=== PATIENT | female | born 1955 | race Two or more races ===

== ENCOUNTER 2020-03-30 19:29 | Emergency (ER) | payer MEDICARE, BC ==
[~2020-03-30] VITALS: Ht 154.9 cm; Wt 61.8 kg
[~2020-03-30 19:29] MED LIST: AMIT-189 PO; ASPI-1265 PO; ATOR20TA PO; FOLI0.4T2 PO; HYDR12.55 PO; LISI-600 PO; METH2.5T PO; OMEP40CA13 PO; PRED1TAB PO; SOTA80TA73 PO
[2020-03-30 20:11] LABS: BASOPHILS # (AUTO) 0.1 X10'3 (0-0.2); BASOPHILS % (AUTO) 1.3 % (0-1); EOSINOPHILS # (AUTO) 0.3 X10'3 (0-0.9); HEMATOCRIT 34.9 % (35.0-45.0); HEMOGLOBIN 11.8 g/dl (12.0-16.0); LYMPHOCYTES # (AUTO) 1.5 X10'3 (1.1-4.8); LYMPHOCYTES % (AUTO) 29.8 % (21-51); MEAN CORPUSCULAR HEMOGLOBIN 30.2 PG (27.0-31.0); MEAN CORPUSCULAR HGB CONC 33.8 g/dL (33.0-36.5); MEAN CORPUSCULAR VOLUME 89.5 FL (78-98); MEAN PLATELET VOLUME 6.9 FL (7.4-10.4); MONOCYTES # (AUTO) 0.8 X10'3 (0-0.9); MONOCYTES % (AUTO) 15.7 % (2-12); NEUTROPHILS # (AUTO) 2.4 X10'3 (1.8-7.7); NEUTROPHILS % (AUTO) 47.2 % (42-75); PLATELET COUNT 297 X10'3 (140-440); WHITE BLOOD COUNT 5.2 X10'3 (4.5-11.0)
[2020-03-30 20:18] LABS: ALANINE AMINOTRANSFERASE 27 U/L (12-78); ALBUMIN 3.2 G/DL (3.4-5.0); ALBUMIN/GLOBULIN RATIO 0.8 (1.1-1.5); ALKALINE PHOSPHATASE 90 IU/L (46-116); ANION GAP 6 (8-16); ASPARTATE AMINO TRANSFERASE 21 U/L (10-37); BILIRUBIN,TOTAL 0.2 MG/DL (0.1-1.0); BLOOD UREA NITROGEN 12 MG/DL (7-18); BUN/CREATININE RATIO 13.8 (6.6-38.0); CALCIUM 8.5 MG/DL (8.5-10.1); CHLORIDE 106 MMOL/L (99-107); CREATININE 0.87 MG/DL (0.40-0.90); GLUCOSE 140 MG/DL (70-104); LIPASE 279 U/L (73-393); POTASSIUM 3.4 MMOL/L (3.5-5.1); SODIUM 140 MMOL/L (135-145); TOTAL CARBON DIOXIDE 27.6 MMOL/L (24-32); eGFR 65 ML/MIN
[2020-03-30 20:25] LABS: CLARITY,URINE CLEAR (Clear); COLOR,URINE YELLOW (Yellow); GLUCOSE, URINE NEGATIVE (Neg); KETONES,URINE NEGATIVE (Neg); NITRITES, URINE NEGATIVE (Neg); OCCULT BLOOD,URINE NEGATIVE (Neg); PROTEIN,URINE NEGATIVE (Neg); UROBILINOGEN,URINE 0.2 E.U/dL (0.2-1.0)
[2020-03-30 20:26] LABS: UA COLLECTION TYPE CLN CATCH MIDSTREAM
[2020-03-30 20:36] LABS: BACTERIA,URINE FEW /HPF (Neg); RBC,URINE NONE SEEN /HPF (0-2); SQUAMOUS EPITHELIAL CELL,UR FEW /LPF (FEW); WBC,URINE 0-4 /HPF (0-4)
--- NOTE | 2020-03-30 21:19 | NUR ---
RESTING IN BED, NO APPARENT DISTRESS. RESPIRATIONS EVEN
[2020-03-30] MEDS ORDERED: ketorolac tromethamine 15mg/ml inj. IV ONE (22:25)
[2020-03-30] MEDS ORDERED: normal saline 1000ML IV soln IVB ONE (22:25)
[2020-03-30] MEDS ORDERED: pantoprazole 40 MG vial IV ONE (22:25)
[2020-03-30] MEDS ORDERED: ondansetron/PF 4mg/2ml inj IV ONE (22:25)
[2020-03-30] MEDS ORDERED: morphine 4 MG/ML inj SYRINge IV ONE (22:25)
[2020-03-30] MEDS ORDERED: iohexol 300mg/ml 100ml inj. ONE (23:09)
[2020-03-30] MEDS ORDERED: CYCL-1 PO (23:53)
[2020-03-31 00:41] VITALS: BP 108/60
[2020-03-31 12:17] LABS: LEUKOCYTE ESTERASE ,URINE NEGATIVE (Neg)
== END 2020-03-31 00:43 | disposition home or self-care (01) ==
LOC: ER 19:30
DX: M54.6 Pain in thoracic spine (principal); R10.12 Left upper quadrant pain; R10.11 Right upper quadrant pain; R10.13 Epigastric pain; R11.0 Nausea; I48.91 Unspecified atrial fibrillation; E78.00 Pure hypercholesterolemia, unspecified; I10 Essential (primary) hypertension; Z98.890 Other specified postprocedural states; Z79.82 Long term (current) use of aspirin; Z79.899 Other long term (current) drug therapy
CPT/HCPCS: 74176; 80053; 81001; 83690; 85025; 96361; 96374; 96375; 99285; C9113; J1885; J2270; J2405; J7030; Q9967